=== PATIENT | female | born 1950 | race Caucasian/White ===

== ENCOUNTER 2019-03-17 12:05 | Emergency (ER) | payer MEDICARE, MEDICAID ==
[2019-03-17] MEDS ORDERED: Ibuprofen TAB* 600 MG PO ONE (12:22)
--- NOTE | 2019-03-17 13:01 | ED ---
Adult Trauma - HPI Summary HPI Summary: Patient is a 68-year-old female presenting to the ED with acute low back pain and right-sided hip pain after a fall approximately 1 hour [employer]STRUCTION [employer]ITE [employer]. She states she tripped over a stoop and fell, landing on her low back and right hip. She was ambulatory following this, however continues to have worsening pain over the past hour. She denies any numbness or tingling radiating down the right leg. Denies any foot drop. Denies history of low back pain or hip pain. She denies any other symptoms including hitting her head or LOC. She is endorsing pain at 9/10, constant and aching. She denies any signs of trauma or abrasions. - History of Current Complaint Chief Complaint: EDFall Stated Complaint: FALL LUMBER PAIN AND LEG PAIN Time Seen by Provider: 03/17/19 12:07 Hx Obtained From: Patient ?: No Mechanism of Injury: Fall Ambulatory at the Scene: Yes Loss of Consciousness: no loss of consciousness Force: Low Onset/Duration: Started Hours Ago Onset of Pain: Hours Onset Severity: Moderate Current Severity: Moderate Pain Intensity: 5 Pain Scale Used: 0-10 Numeric Location: Abdomen/Pelvis Character: Aching Aggravating Factor(s): Movement Alleviating Factor(s): Rest Associated Signs & Symptoms: Negative: SOB, Chest Pain, Cough, Hematuria, Nausea /Vomiting, Loss of Consciousness, Numbness/Weakness, Hemoptysis, Significant Blood Loss - Allergy/Home Medications Allergies/Adverse Reactions: Allergies Allergy/AdvReac Type Severity Reaction Status Date / Time acetaminophen Allergy Unknown Verified 03/17/19 12:12 Reaction Details codeine Allergy Unknown Verified 03/17/19 12:12 Reaction Details Home Medications: Home Medications Acetaminophen [Acetaminophen Extra Strength] 1,000 mg PO Q6HR PRN 03/17/19 [ History Confirmed 03/17/19] Cholecalciferol TAB* [Vitamin D TAB*] 1,000 unit PO DAILY 03/17/19 [History Confirmed 03/17/19] Citalopram TAB* [CeleXA TAB*] 20 mg PO DAILY 03/17/19 [History Confirmed ] Clopidogrel TAB* [Plavix TAB*] 75 mg PO DAILY 03/17/19 [History Confirmed ] Folic Acid TAB* [Folvite TAB*] 1 mg PO DAILY 03/17/19 [History Confirmed ] Zolpidem TAB* [Ambien TAB*] 10 mg PO BEDTIME 03/17/19 [History Confirmed ] PMH/Surg Hx/FS Hx/Imm Hx Previously Healthy: Yes Cardiovascular History: Comment Only: Other Cardiovascular Problems/Disorders - 3 mo f/u of enlarged lymph nodes on prev CT Respiratory History: Reports: Hx Asthma, Hx Chronic Obstructive Pulmonary Disease (COPD) - Immunization History Hx Pertussis Vaccination: No Immunizations Up to Date: Yes Infectious Disease History: No Infectious Disease History: Denies: Traveled Outside the [place] in Last 30 Days - Social History Occupation: Unemployed Lives: With Family Alcohol Use: None Hx Substance Use: No Substance Use Type: Reports: None Hx Tobacco Use: Yes Smoking Status (MU): Heavy Every Day Tobacco Smoker Review of Systems Constitutional: Negative Negative: Fever, Chills, Fatigue, Skin Diaphoresis Negative: Palpitations, Chest Pain Negative: Shortness Of Breath, Cough Negative: Abdominal Pain, Vomiting, Diarrhea, Nausea Genitourinary: Negative Positive: no symptoms reported, see HPI Positive: Arthralgia - right lateral hip, groin and R knee pain on palpation. no pain with flexion or extension of the knee; patient is able to abduct and adduct at the R hip with minor discomfort. No internal or external rotation at rest. No abrasions or signs of trauma . Negative: Myalgia Skin: Negative All Other Systems Reviewed And Are Negative: Yes Physical Exam Triage Information Reviewed: Yes Vital Signs On Initial Exam: Initial Vitals Temp Pulse Resp BP Pulse Ox 100.0 F 100 18 151/76 94 03/17/19 12:03/17/19 12:03/17/19 12:03/17/19 12:03/17/19 12:09 Vital Signs Reviewed: Yes Appearance: Positive: Well-Appearing, Well-Nourished Skin: Positive: Skin Color Reflects Adequate Perfusion Head/Face: Positive: Normal Head/Face Inspection Neck: Positive: No Lymphadenopathy Respiratory/Lung Sounds: Positive: Clear to Auscultation, Breath Sounds Present Cardiovascular: Positive: RRR, Pulses are Symmetrical in both Upper and Lower Extremities Musculoskeletal: Positive: Pain @ - right lateral hip pain Neurological: Positive: Speech Normal Psychiatric: Positive: Affect/Mood Appropriate AVPU Assessment: Alert Diagnostics - Vital Signs Vital Signs Temp Pulse Resp BP Pulse Ox 03/17/19 12:09 100.0 F 100 18 151/76 94 - Laboratory Lab Statement: Any lab studies that have been ordered have been reviewed, and results considered in the medical decision making process. Adult Trauma Course/Dx - Course Course Of Treatment: Patient is evaluated for right hip and low back pain. On physical examination, patient has pain to the right lateral hip on palpation. Patient remains ambulatory, however discomfort. She is also c/o R knee pain, but is able to flex and extend without pain and no signs of trauma noted. No signs of trauma noted to the right hip or low back. No step-off noted. X-ray of the lumbar spine and pelvis obtained: Negative for any acute findings. Patient was given Flexeril in the ED. She is given prescription for Flexeril per her request. She is ambulating well upon discharge. She is diagnosed with contusion. - Diagnoses Differential Diagnosis/HQI/PQRI: Positive: Sprain, Strain Provider Diagnoses: Low back pain, Acute right hip pain, Fall, Knee pain, right Discharge - Sign-Out/Discharge Documenting (check all that apply): Patient Departure Patient Received Moderate/Deep Sedation with Procedure: No - Discharge Plan Condition: Stable Disposition: HOME Patient Education Materials: Contusion in Adults (ED) Referrals: Mario Bell MD [Primary Care Provider] - Additional Instructions: Tylenol 650mg three times daily for pain Moist heat to the area No evidence of fracture on imaging - Billing Disposition and Condition Condition: STABLE Disposition: Home
[2019-03-17 13:59] VITALS: BP 137/70
[2019-03-17] MEDS ORDERED: Cyclobenzaprine TAB* 10 MG PO ONE (13:59)
== END 2019-03-17 14:02 | disposition home or self-care (01) ==
LOC: ED 12:05
DX: M54.5 Low back pain (principal); M25.551 Pain in right hip; M25.561 Pain in right knee; J44.9 Chronic obstructive pulmonary disease, unspecified; F17.210 Nicotine dependence, cigarettes, uncomplicated; Z88.5 Allergy status to narcotic agent; Z88.6 Allergy status to analgesic agent; Z79.899 Other long term (current) drug therapy
CPT/HCPCS: 72131; 72192; 99282; A9270-GY

== ENCOUNTER 2019-08-29 09:38 | Day surgery (SDC) | payer MEDICARE, MEDICAID ==
[~2019-08-29 09:38] MED LIST: Cyclopentolate 1% OPTH.SOL* 2 ML BTL ONE; Ketorolac 0.5% OPHTH (NF) 0.5 % 5 ML BTL ONE; Lidocaine 1% MPF ** 5 ML VIAL ONE; Neomycin/Polymy/Dex OPHTH.OIN* 3.5 GM ONE; Phenylephrine OPHTH SOL 2.5%* 2 ML ONE; Povidone Iodine 5% OPTH* 30 ML BTL ONE; Tetracaine 0.5% OPTH.SOL 4 ML* 1 DROP BTL ONE; Tropicamide 1% OPTH.SOL* BTL ONE; acetaZOLAMIDE TAB* 250 MG ONE
[2019-08-29] MEDS ORDERED: Midazolam* 1 MG/ML 2 ML VIAL (2 MG) ONE (09:53)
[2019-08-29] MEDS ORDERED: Trypan Blue 0.06% SOL* 0.5 ML BTL ONE ×2 (10:39→10:41)
--- NOTE | 2019-08-29 13:54 | OP ---
DATE OF OPERATION: 08/29/19 - [facility] DATE OF : 48 SURGEON: Morgan Galindo MD ANESTHESIA: Monitored anesthesia care. PRE-OP DIAGNOSIS: Mature cataract, left eye. POST-OP DIAGNOSIS: Mature cataract, left eye. OPERATIVE PROCEDURE: Extracapsular cataract extraction of left eye with intraocular lens implant. IMPLANT: SN60WF 19.0 diopter lens to the left eye. COMPLICATIONS: None. DESCRIPTION OF PROCEDURE: The patient was given phenylephrine 2.5 % and cyclopentolate 1% eye drops to the operative eye in the preoperative area. The patient was taken to the operating room where a time-out was taken to identify the correct patient, site, and side of surgery. The patient's left eye was prepped and draped in the usual sterile fashion with 5% Betadine. A second time -out was taken to verify the correct patient, side, and site of surgery, and correct lens implant. A lid speculum was placed to the left eye. A 1 mm paracentesis blade was used to make a clear corneal incision in the inferior temporal position. Preservative-free 1% lidocaine was injected into the anterior chamber. VisionBlue was then injected under gas bubble into the anterior chamber to stain the anterior capsule due to loss of red reflex from the mature cataract. The VisionBlue was then rinsed from the anterior chamber and ProVisc injected into the anterior chamber. A 2.75 mm keratome blade was used to make a triplanar incision at the superior temporal position. A cystotome initiated a capsulorrhexis, which was completed with MST forceps in a continuous and curvilinear manner. Hydrodissection of the lens was performed with BSS on a cannula. The lens could be spun in a capsular bag. The phacoemulsification handpiece was used with a [id number] technique to remove the nucleus. The I/A handpiece then removed the residual cortical lens material. ProVisc was injected to inflate the capsular bag. The planned SN60WF 19.0 diopter lens was then injected into the capsular bag. The residual ProVisc was then removed from the eye with the I/A handpiece. The corneal incisions were hydrated and no leaks occurred at physiologic pressure around 20 mmHg per palpation. The wound speculum was removed and drapes were removed. Maxitrol ointment was placed to the surface of the operative eye. An adhesive patch and shield was then placed on the operative eye. The patient was taken to the postoperative area in stable condition. [id number]/[facility] #: [id number] CHANELLE
[2019-08-29 15:04] VITALS: BP 130/58
== END 2019-08-29 11:45 | disposition home or self-care (01) ==
LOC: OREAST 09:38
PROVIDERS: ATTEND Student in an Organized Health Care Education/Training Program
DX: H25.12 Age-related nuclear cataract, left eye (principal); J44.9 Chronic obstructive pulmonary disease, unspecified; F17.219 Nicotine dependence, cigarettes, with unspecified nicotine-induced disorders; I73.9 Peripheral vascular disease, unspecified; F43.10 Post-traumatic stress disorder, unspecified; Z85.038 Personal history of other malignant neoplasm of large intestine
CPT/HCPCS: A9270-GY; J2250; V2632

== ENCOUNTER 2019-09-19 09:24 | Day surgery (SDC) | payer MEDICARE, MEDICAID ==
[~2019-09-19 09:24] MED LIST changes: +Acetaminophen TAB* 325 MG PO PRN; -Cyclopentolate 1% OPTH.SOL* 2 ML BTL ONE; -Ketorolac 0.5% OPHTH (NF) 0.5 % 5 ML BTL ONE; -Lidocaine 1% MPF ** 5 ML VIAL ONE; -Neomycin/Polymy/Dex OPHTH.OIN* 3.5 GM ONE; -Phenylephrine OPHTH SOL 2.5%* 2 ML ONE; -Povidone Iodine 5% OPTH* 30 ML BTL ONE; -Tetracaine 0.5% OPTH.SOL 4 ML* 1 DROP BTL ONE; -Tropicamide 1% OPTH.SOL* BTL ONE; -acetaZOLAMIDE TAB* 250 MG ONE
[2019-09-19] MEDS ORDERED: Tropicamide 1% OPTH.SOL* BTL ONE (11:15)
[2019-09-19] MEDS ORDERED: Neomycin/Polymy/Dex OPHTH.OIN* 3.5 GM ONE (11:15)
[2019-09-19] MEDS ORDERED: Lidocaine 1% MPF ** 5 ML VIAL ONE (11:15)
[2019-09-19] MEDS ORDERED: Ketorolac 0.5% OPHTH (NF) 0.5 % 5 ML BTL ONE (11:15)
[2019-09-19] MEDS ORDERED: Povidone Iodine 5% OPTH* 30 ML BTL ONE (11:15)
[2019-09-19] MEDS ORDERED: Phenylephrine OPHTH SOL 2.5%* 2 ML ONE (11:15)
[2019-09-19] MEDS ORDERED: Cyclopentolate 1% OPTH.SOL* 2 ML BTL ONE (11:15)
[2019-09-19] MEDS ORDERED: Tetracaine 0.5% OPTH.SOL 4 ML* 1 DROP BTL ONE (11:15)
[2019-09-19] MEDS ORDERED: acetaZOLAMIDE TAB* 250 MG ONE (11:15)
[2019-09-19 12:09] VITALS: BP 128/58
--- NOTE | 2019-09-19 12:45 | OP ---
DATE OF OPERATION: 09/19/2019 - [facility] DATE OF : 1950. SURGEON: Morgan Galindo MD ANESTHESIA: Monitored anesthesia care. PREOPERATIVE DIAGNOSIS: Cataract, right eye. POSTOPERATIVE DIAGNOSIS: Cataract, right eye. OPERATIVE PROCEDURE: Extracapsular cataract extraction of the right eye with intraocular lens implant. IMPLANT: SN60WF 20.0 diopter lens to the right eye. COMPLICATIONS: None. DESCRIPTION OF PROCEDURE: The patient was given phenylephrine 2.5 % and cyclopentolate 1% eye drops to the operative eye in the preoperative area. The patient was taken to the operating room where a time-out was taken to identify the correct patient, site, and side of surgery. The patient's right eye was prepped and draped in the usual sterile fashion with 5% Betadine. A second time- out was taken to verify the correct patient, side, and site of surgery, as well as the correct lens implant. A lid speculum was placed to the right eye. A 1mm paracentesis blade was used to make a clear corneal incision. Preservative-free 1% lidocaine was injected into the anterior chamber. DisCoVisc was then injected into the anterior chamber. A 2.75 mm keratome blade was used to make a triplanar incision. A cystotome initiated a capsulorrhexis, which was completed with Utrata forceps in a continuous and curvilinear manner. Hydrodissection of the lens was performed with BSS on a cannula. The lens could be spun in a capsular bag. The phacoemulsification handpiece was used with a divide-and- conquer technique to remove the nucleus. The I/A handpiece then removed the residual cortical lens material. DisCoVisc was injected to inflate the capsular bag. The planned SN60WF 20.0 diopter lens was injected into the capsular bag. The residual DisCoVisc was removed from the eye with the I/A handpiece. The corneal incisions were hydrated and no leaks occurred at physiologic pressure around 20 mmHg per palpation. The lid speculum was removed and drapes were removed. Maxitrol ointment was placed to the surface of the operative eye. An adhesive patch and shield was then placed on the operative eye. The patient was taken to the postoperative area in stable condition. [id number]/[facility] #: [id number] [facility]
== END 2019-09-19 12:01 | disposition home or self-care (01) ==
LOC: OREAST 09:24
PROVIDERS: ATTEND Student in an Organized Health Care Education/Training Program
DX: H25.11 Age-related nuclear cataract, right eye (principal); F17.210 Nicotine dependence, cigarettes, uncomplicated; J44.9 Chronic obstructive pulmonary disease, unspecified; F43.10 Post-traumatic stress disorder, unspecified; Z85.038 Personal history of other malignant neoplasm of large intestine
CPT/HCPCS: A9270-GY; V2632

== ENCOUNTER 2019-09-23 06:26 | Emergency (ER) | payer MEDICARE, MEDICAID ==
--- OUTSIDE RECORDS SUMMARY | 2019-09-23 07:08 | XMS REPORT | Continuity of Care Document ---
:1950 External Reference #:[id number] Author Name Morgan Galindo M.D. Address [address] [place] [address] Care Team Providers Name Role Phone Mario Bell M.D. - Family Medicine Care Team Information Technology Education Teacher [phone] Problems Active Problems Provider Date Posttraumatic stress disorder Onset: Panic attack Onset: Difficulty sleeping Onset: Nuclear senile cataract Morgan Galindo M.D. Onset: 08/24/2019 Social History Type Date Description Comments Sex Unknown ETOH Use Denies alcohol use Tobacco Use Start: Unknown Heavy tobacco smoker (more than 10 cigarettes/day) Recreational Drug Use Denies Drug Use Smoking Status Reviewed: 08/24/19 Heavy tobacco smoker (more than 10 cigarettes/day) Allergies, Adverse Reactions, Alerts Active Allergies Reaction Severity Comments Date Tylenol Bronchial Spasms Severe 07/20/2019 Medications Active Medications SIG Qnty Indications Ordering Provider Date Ciprofloxacin HCL instill one drop 5ml Morgan Galindo, 08/24/2019 0.3% in the left eye M.D. Solution three times a day, start the day before surgery Ketorolac Tromethamine use one drop in 10ml Morgan Galindo, 08/24/2019 0.5% the left eye M.D. Solution three times a day, start the day before surgery Prednisolone Acetate 1 drops left eye 10ml Morgan Galindo, 08/24/2019 1% three times a M.D. Suspension day. taper as directed Zolpidem Tartrate Unknown 10mg Tablets Clopidogrel Bisulfate Unknown 75mg Tablets Alprazolam Unknown 1mg Tablets Cilostazol Unknown 100mg Tablets Aspirin Unknown 325mg Tablets Folic Acid Unknown 1mg Tablets Immunizations Description No Information Available Vital Signs Description No Information Available Results Description No Information Available Procedures Date Code Description Status 07/20/2019 90504 New Patient Comprehensive Exam Completed Medical Devices Description No Information Available Encounters Description No Information Available Assessments Date Code Description Provider 08/24/2019 H25.12 Age-related nuclear cataract, left eye Morgan Galindo M.D. 08/24/2019 H25.11 Age-related nuclear cataract, right eye Morgan Galindo M.D. 07/20/2019 H25.13 Age-related nuclear cataract, bilateral Morgan Galindo M.D. Plan of Treatment Future Appointment(s):10/06/2019 10:00 am - Morgan Galindo M.D. at Addison Valencia MD, [facility] 8:00 am - Morgan Galindo M.D. at Addison Valencia MD , [facility] 10:00 am - Morgan Galindo M.D. at Addison Valencia MD, [id number] 9:45 am - Morgan Galindo M.D. at Addison Valencia MD, [facility]10/29/2018 9: 00 am - Morgan Galindo M.D. at Addison Valencia MD, [facility]110/24/2018 - Morgan Galindo M.D.H25.12 Age-related nuclear cataract, left eyeComments:Smoking can increase the risk of developing or worsening any eye related disease, as well as affect your overall health. If you are a smoker, we strongly recommend that you quit.If you are not a smoker, we strongly recommend that you do not start. Dense cataract in the left eye.Follow up:For surgery. Please keep post op appointments as scheduled.H25.11 Age-related nuclear cataract, right eye Functional Status Description No Information Available Mental Status Description No Information Available Referrals Description No Information Available
--- OUTSIDE RECORDS SUMMARY | 2019-09-23 07:08 | XMS REPORT | Continuity of Care Document ---
:1950 External Reference #:[id number] Author Name Morgan Galindo M.D. Address [address] [place] [address] Care Team Providers Name Role Phone Mario Bell M.D. - Family Medicine Care Team Information Platform Attendant [phone] Problems Active Problems Provider Date Posttraumatic stress disorder Onset: Panic attack Onset: Difficulty sleeping Onset: Presence of intraocular lens Morgan Galindo M.D. Onset: 08/30/2019 Nuclear senile cataract Morgan Galindo M.D. Onset: 08/24/2019 Social History Type Date Description Comments Sex Unknown ETOH Use Denies alcohol use Tobacco Use Start: Unknown Heavy tobacco smoker (more than 10 cigarettes/day) Recreational Drug Use Denies Drug Use Smoking Status Reviewed: 08/30/19 Heavy tobacco smoker (more than 10 cigarettes/day) Allergies, Adverse Reactions, Alerts Active Allergies Reaction Severity Comments Date Tylenol Bronchial Spasms Severe 07/20/2019 Medications Active Medications SIG Qnty Indications Ordering Provider Date Artificial Tears Morgan Galindo, 08/29/2019 1-0.3% M.D. Solution Ciprofloxacin HCL instill one drop 5ml Morgan [...] Information Available Procedures Date Code Description Status 08/29/2019 43438 Cataract Surgery Complex Completed 08/24/2019 25550 Ophthalmic Biometry Completed 08/24/2019 48496 Ophthalmic Biometry Completed 08/24/2019 29523 Est Patient Intermediate Exam Completed 07/20/2019 08551 New Patient Comprehensive Exam Completed Medical Devices Description No Information Available Encounters Description No Information Available Assessments Date Code Description Provider 08/30/2019 H25.11 Age-related nuclear cataract, right eye Morgan Galindo M.D. 08/30/2019 Z96.1 Presence of intraocular lens Morgan Galindo M.D. 08/29/2019 H25.12 Age-related nuclear cataract, left eye Morgan Galindo M.D. 08/29/2019 H25.89 Other age-related cataract Morgan Galindo M.D. 08/24/2019 H25.12 Age-related nuclear cataract, left eye Morgan Galindo M.D. 08/24/2019 H25.11 Age-related nuclear cataract, right eye Morgan Galindo M.D. 07/20/2019 H25.13 Age-related nuclear cataract, bilateral Morgan Galindo M.D. Plan of Treatment Future Appointment(s):10/06/2019 10:00 am - Morgan Galindo M.D. at Addison Valencia MD, [facility] 8:00 am - Morgan Galindo M.D. at Addison Valencia MD , [facility] 10:00 am - Morgan Galindo M.D. at Addison Valencia MD, [id number] - Morgan Galindo M.D.H25.11 Age-related nuclear cataract, right eyeComments:Smoking can increase the risk of developing or worsening any eye related disease, as well as affect your overall health. If you are a smoker, we strongly recommend that you quit.If you are not a smoker, we strongly recommend that you do not start. Dense cataract in the right eye.Follow up:For surgery. Please keep post op appointments as scheduled.Z96.1 Presence of intraocular lensComments:The artifical lens implant in your left eye appears to be stable. Since this is the first day aftersurgery, your left eye is still dilated and the vision will still be slightly blurry. The dilation will go down over the next day or two. Continue taking your eye drops as directed on the surgical calendar. If you have any questions, please call our office. Functional Status Description No Information Available Mental Status Description No Information Available Referrals Description No Information Available
--- OUTSIDE RECORDS SUMMARY | 2019-09-23 07:08 | XMS REPORT | Continuity of Care Document ---
:1950 External Reference #:[id number] Author Name Morgan Galindo M.D. Address [address] [place] [address] Care Team Providers Name Role Phone Mario Bell M.D. - Family Medicine Care Team Information Venue Manager Problems Active Problems Provider Date Posttraumatic stress [...] Use Denies Drug Use Smoking Status Reviewed: 09/20/19 Heavy tobacco smoker (more than 10 cigarettes/day) [...] Information Available Procedures Date Code Description Status 09/19/2019 24746 Extracapsular Cataract Extraction W/Intraocular Lens Completed 08/29/2019 22212 Cataract Surgery Complex Completed 08/24/2019 32184 Ophthalmic Biometry Completed 08/24/2019 92480 Ophthalmic Biometry Completed 08/24/2019 33622 Est Patient Intermediate Exam Completed 07/20/2019 08517 New Patient Comprehensive Exam Completed Medical Devices Description No Information Available Encounters Description No Information Available Assessments Date Code Description Provider 09/20/2019 Z96.1 Presence of intraocular lens Morgan Galindo M.D. 09/19/2019 H25.11 Age-related nuclear cataract, right eye Morgan Galindo M.D. 08/30/2019 H25.11 Age-related nuclear cataract, right eye [...] Morgan Galindo M.D. at Addison Valencia MD, 09/20/2019 - Morgan Galindo M.D.Z96.1 Presence of intraocular lensComments:Smoking can increase the risk of developing or worsening any eye related disease, as well as affect your overall health. If you are a smoker, we strongly recommend that you quit.If you are not a smoker, we strongly recommend that you do not start. The artifical lens implant in your right eye appearsto be stable. Since this is the first day after surgery, your right eye is still dilated and the vision will still be slightly blurry. The dilation will go down over the next day or two. Continue taking your eye drops as directed on the surgical calendar. If you have any questions, please call [facility]. YOU CAN TRY +2.00 OR +2.50 OVER THE COUNTER READING GLASSES FOR YOUR NEAR VISION.Follow up:As scheduled You can expect to have your eyes dilated at your next visit. If Dr. Galindo orders any additional testing, it may require extra time. We recommend that you bring sunglasses, as dilation drops often make you light sensitive until they wear off. We always recommend you bring someone to drive you home if you are uncomfortable driving with your eyes dilated. If you have any questions before your next visit, feel free to call our office at . Functional Status Description No Information Available Mental Status Description No Information Available Referrals Description No Information Available
--- NOTE | 2019-09-23 07:31 | ED ---
Back Pain - HPI Summary HPI Summary: This patient is a 69 year old female presenting to [facility] with a chief complaint of back pain since 3-4 days ago. She states the pain is in lower back. She states her first episode of pain was from traumatic injury about 4-5 months ago. She states she has back spasms and worsening back pain when she lays supine and when she walks. The patient spasms starting on the right side and then radiating to her left side. She states the back hurts all the time and also has worsening back pain when she walks. She states she has to sit up to avoid getting spasms in her back. She denies Hx of Kidney Stones. She states she has a vascular stent. Pt denies any fever, chills, erythema of eyes, sore throat, CP, SOB, cough, abdominal pain, N/V, dysuria, hematuria, edema, rash, or dizziness. - History of Current Complaint Chief Complaint: EDBackInjuryPain Stated Complaint: BACK PAIN PER PT Time Seen by Provider: 09/23/19 07:22 Hx Obtained From: Patient Onset/Duration: Lasting Days Onset/Duration: Started Days Ago Pain Intensity: 6 Pain Scale Used: 0-10 Numeric - Allergies/Home Medications Allergies/Adverse Reactions: Allergies Allergy/AdvReac Type Severity Reaction Status Date / Time codeine Allergy Severe bronchial Verified 09/19/19 09:53 spasm PMH/Surg Hx/FS Hx/Imm Hx Endocrine/Hematology History: Denies: Hx Diabetes - hypoglycemic Cardiovascular History: Reports: Hx Peripheral Vascular Disease - PAD- stent placed VIANEY 3-4 years ago on pletal, pavix, asa Comment Only: Other Cardiovascular Problems/Disorders - 3 mo f/u of enlarged lymph nodes on prev CT Respiratory History: Reports: Hx Asthma, Hx Chronic Obstructive Pulmonary Disease (COPD) Sensory History: Reports: Hx Cataracts - both, Hx Contacts or Glasses - glasses Denies: Hx Hearing Aid Opthamlomology History: Reports: Hx Cataracts - both, Hx Contacts or Glasses - glasses Neurological History: Reports: Hx Migraine - HX of- resolved Psychiatric History: Reports: Hx Anxiety - PTSD has prn meds - Cancer History Cancer Type, Location and Year: COLON Hx Chemotherapy: No - Surgical History Surgery Procedure, Year, and Place: Stent right leg, PVD. colon resection 3 years ago. partial oophrectomy 1960's. right breast lump removed- Hx Anesthesia Reactions: No Infectious Disease History: No Infectious Disease History: Denies: Traveled Outside the [place] in Last 30 Days - Family History Known Family History: Negative: Diabetes - Social History Alcohol Use: None Hx Substance Use: No Substance Use Type: Reports: None Hx Tobacco Use: Yes Smoking Status (MU): Former Smoker Amount Used/How Often: 1 -2 ppd smoked since 11 years old Review of Systems Negative: Fever, Chills Negative: Erythema Negative: Sore Throat Negative: Chest Pain Negative: Shortness Of Breath, Cough Negative: Abdominal Pain, Vomiting, Nausea Negative: dysuria, hematuria Positive: Other - Back pain. Negative: Edema Negative: Rash Neurological: Other - Neg: Dizziness All Other Systems Reviewed And Are Negative: No Physical Exam - Summary Physical Exam Summary: Constitutional: Well-developed, Well-nourished, Alert. (-) Distressed Skin: Warm, Dry HENT: Normocephalic; Atraumatic Eyes: Conjunctiva normal Neck: Musculoskeletal ROM normal neck. (-) JVD, (-) Stridor, (-) Tracheal deviation Cardio: Rhythm regular, rate 120 BPM tachycardic, Heart sounds normal; Intact distal pulses; The pedal pulses are 2+ and symmetric. Radial pulses are 2+ and symmetric. (-) Murmur Pulmonary/Chest wall: Effort normal. (-) Respiratory distress, (-) Wheezes, (-) Rales Abd: Soft, (-) tenderness, (-) Distension, (-) Guarding, (-) Rebound Musculoskeletal: (-) Edema. Bilateral CVA tenderness. Lymph: (-) Cervical adenopathy Neuro: Alert, Oriented x3 Psych: Mood and affect Normal Triage Information Reviewed: Yes Vital Signs On Initial Exam: Initial Vitals Temp Pulse Resp BP Pulse Ox 97.9 F 124 22 115/86 95 09/23/19 06:31 09/23/19 06:31 09/23/19 06:31 09/23/19 06:31 09/23/19 06:31 Vital Signs Reviewed: Yes Procedures - Sedation Patient Received Moderate/Deep Sedation with Procedure: No Diagnostics - Vital Signs Vital Signs Temp Pulse Resp BP Pulse Ox 09/23/19 06:31 97.9 F 124 22 115/86 95 - Laboratory Result Diagrams: 09/23/19 07:40 09/23/19 07:40 Lab Statement: Any lab studies that have been ordered have been reviewed, and results considered in the medical decision making process. - CT Abd/Pel CT Interpretation Completed By: Radiologist Summary of CT Findings: Dilated colon and dilated distal ileum just proximal to the anastomosis to the colon. Findings suggestive of enteritis with no evidence of zone of transition. Fluid is noted throughout most of the colon. No free air is identified. ED Provider has reviewed this report. Re-Evaluation - Re-Evaluation First Eval Re-Evaluation Time: 11:22 Comment: Patient feels better after treatment. Back Pain Course/Dx - Course Course Of Treatment: This patient is a 69 year old female presenting to [facility] with a chief complaint of back pain since 3-4 days ago. Physical exam revealed bilateral CVA tenderness. Labs were unremarkable except Plt Count 474, Carbon Dioxide 17 L, Glucose 112 H, CRP 15.77 H, Ur Specific [place] 1.049 H, Ur Leukocyte Esterase Trace A, Ur Squamous Epith Cells Present A. CT Abd/Pel reveals dilated colon and dilated distal ileum just proximal to the anastomosis to the colon. Findings suggestive of enteritis with no evidence of zone of transition. Fluid is noted throughout most of the colon. No free air is identified. She has no signs or symptoms of enteritis. Clinical symotoms do not correlate with CT findings. The patient was administered Toradol, morphine, zofran, omnipaque contrast for CT and NS in the ED. A plan for discharge was discussed with the patient and she was agreeable with this plan. - Diagnoses Provider Diagnoses: Back pain Discharge ED - Sign-Out/Discharge Documenting (check all that apply): Patient Departure - Discharge - Discharge Plan Condition: Stable Disposition: HOME Prescriptions: Cyclobenzaprine TAB* [Flexeril 10 MG TAB*] 10 mg PO TID PRN #15 tab PRN Reason: Pain - Moderate Lidocaine PATCH 5%* [Lidoderm 5% Patch*] 1 patch TRANSDERM DAILY #14 patch Nitrofurantoin Monohyd/M-Cryst [Macrobid 100 mg Capsule] 100 mg PO BID #20 cap traMADol TAB* [Ultram*] 50 mg PO Q6HR PRN #10 tab MDD 4 PRN Reason: Pain - Severe Patient Education Materials: Back Pain (ED) Referrals: Mario Bell MD [Primary Care Provider] - Additional Instructions: Follow up with your PCP, return to ED with new or worsening symptoms. - Billing Disposition and Condition Condition: STABLE Disposition: Home - Attestation Statements Document Initiated by John: Yes Documenting Scribe: Giovanni Pearce Provider For Whom John is Documenting (Include Credential): Reynaldo Broussard MD Scribe Attestation: Giovanni Ford, scribed for Reynaldo Broussard MD on 10/01/19 at 0949. Scribe Documentation Reviewed: Yes Provider Attestation: The documentation as recorded by the jackibGiovanni thompson accurately reflects the service I personally performed and the decisions made by me, Reynaldo Broussard MD Status of Scribe Document: Viewed
[2019-09-23] MEDS ORDERED: Ondansetron INJ* 2 MG/ML VIAL IV ONE (07:34)
[2019-09-23] MEDS ORDERED: Morphine 4 MG/ML VIAL (1 ml) 4 MG/ML VIAL IV ONE (07:34)
[2019-09-23 07:55] LABS: ABS Basophils 0.1 10^3/ul (0-0.2); ABS Eosinophils 0.1 10^3/ul (0-0.6); ABS Lymphocytes 1.4 10^3/ul (1.0-4.8); ABS Monocytes 0.8 10^3/ul (0-0.8); ABS Neutrophils 4.9 10^3/ul (1.5-7.7); Eosinophil % 1.3 %; Hematocrit 37 % (35-47); Hemoglobin 12.5 g/dL (12.0-16.0); Lymphocyte % 18.8 %; Mean Corpuscular HGB Conc 34 g/dL (31-36); Mean Corpuscular Hemoglobin 30 pg (27-31); Mean Corpuscular Volume 90 fL (80-97); Mean Platelet Volume 7.7 fL (7.4-10.4); Platelet Count 474 10^3/uL (150-450); Red Blood Count 4.12 10^6 /uL (3.70-4.87); Red Cell Distribution Width 15 % (10-15); White Blood Count 7.2 10^3/uL (3.5-10.8)
[2019-09-23 08:07] LABS: INR 1.07 (0.82-1.09)
[2019-09-23 08:10] LABS: Albumin/Globulin Ratio 1.3 (1-3); BUN/Creatinine Ratio 16.9 (8-20); Calcium 8.7 mg/dL (8.6-10.3); EGFR Non-African American 90.1 (>60); Globulin 3.1 g/dL (2-4); Potassium 3.7 mmol/L (3.5-5.0); Total Bilirubin 0.2 mg/dL (0.2-1.0); Total Protein 7.1 g/dL (6.4-8.9)
[2019-09-23] MEDS ORDERED: Iohexol 300* (CONTRAST) 10 ML SDV IV ONE (08:31)
[2019-09-23] MEDS: Morphine 4 MG/ML VIAL (1 ml) 4 MG/ML VIAL IV ONE ×2 (09:04→10:08)
[2019-09-23] MEDS ORDERED: NS 0.9% 1000 ML** 1,000 ML IV.FLUID IV ONE (09:09)
[2019-09-23] MEDS ORDERED: NS 0.9% 1000 ML** 1,000 ML IV ONE (09:19)
[2019-09-23] MEDS ORDERED: Ketorolac INJ* 30 MG/ML 1 ML VIAL IV PUSH ONE (09:51)
[2019-09-23 10:03] LABS: Urine Appearance Clear; Urine Bilirubin Negative (Negative); Urine Blood Negative (Negative); Urine Color Yellow; Urine Glucose Negative (Negative); Urine Ketones Negative (Negative); Urine Nitrite Negative (Negative); Urine Protein Negative (Negative); Urine Specific Gravity 1.049 (1.010-1.030); Urine Urobilinogen Negative (Negative)
[2019-09-23 10:04] LABS: Urine Bacteria Absent (Absent); Urine Red Blood Cell Trace(0-2/hpf) (Absent); Urine Squamous Epithelial Cell Present (Absent); Urine White Blood Cell Trace(0-5/hpf) (Absent)
[2019-09-23 10:56] LABS: C Reactive Protein 15.77 mg/L (<8.01)
[2019-09-23 11:59] VITALS: BP 105/70
--- NOTE | 2019-09-26 16:13 | ED ---
Imaging and Labs Follow Up Follow Up Type: Labs/Cultures Labs/Culture Result: Urine culture growing a moderate amount of e. coli and citrobacter. Patient Communication/Plan: Pt. seen in ED for back pain. Urine culture growing a moderate amount of bacteria. Called and discussed with pt. today at 1609. Will treat with macrobid based on sensitivity. Pt. understands and agrees with plan. Provider Diagnoses: Back pain
== END 2019-09-23 12:00 | disposition home or self-care (01) ==
LOC: ED 06:26
DX: M54.5 Low back pain (principal); J44.9 Chronic obstructive pulmonary disease, unspecified; I73.9 Peripheral vascular disease, unspecified; F41.9 Anxiety disorder, unspecified; Z79.01 Long term (current) use of anticoagulants; Z79.82 Long term (current) use of aspirin; Z88.5 Allergy status to narcotic agent; Z87.891 Personal history of nicotine dependence
CPT/HCPCS: 36415; 74177; 80053; 81003; 81015; 83605; 84484; 85025; 85610; 85730; 86140; 87040; 87077; 87086; 87186; 96361; 96374; 96375; 99283; J1885; J2270; J2405; Q9967